=== PATIENT | male | born 1940 | race Two or more races ===

== ENCOUNTER 2019-04-14 14:57 | Inpatient (IN) | payer MEDICARE, MEDICAID ==
[~2019-04-14] VITALS: Ht 160 cm; Wt 60.6 kg
[2019-04-14 16:17] LABS: Urine WBC None Seen /hpf (0 - 3)
[2019-04-14 16:24] LABS: Urine Bacteria NONE SEEN /hpf (None Seen); Urine Blood Negative /uL (Negative); Urine Specific Gravity 1.017 (1.001-1.035)
[2019-04-14 17:14] LABS: Basophils # (auto) 0.1 uL; Eosinophils # (auto) 0 uL; Eosinophils % (auto) 0.1 % (0.0-7.0); Monocytes # (auto) 0.4 uL
[2019-04-14 17:15] LABS: Basophils % (auto) 0.9 % (0.0-2.0); Hematocrit 37.7 % (41.0-53.0); Hemoglobin 12.9 g/dL (13.5-17.5); Lymphocytes # (auto) 0.5 uL; Mean Corpuscular Hgb Conc. 34.1 g/dL (32.0-36.0); Mean Corpuscular Volume 108.7 fL (80.0-100.0); Monocytes % (auto) 3.1 % (0.0-12.0); Neutrophils # (auto) 12.8 uL; Neutrophils % (auto) 91.9 % (37.0-80.0); Platelet Count (auto) 278 10^3/uL (140-450); Red Blood Cells 3.47 10^6/uL (4.5-5.90); Red Cell Distribution Width 15.2 % (11.8-14.3); White Blood Cell 13.9 10^3/uL (4.4-10.8)
[2019-04-14 17:55] LABS: Albumin 3.9 g/dL (3.4-5.0); Anion Gap 5 (5-15); Blood Urea Nitrogen 14 mg/dL (7-18); Calcium 8.6 mg/dL (8.5-10.1); Carbon Dioxide 28 mmol/L (21-32); Chloride 101 mmol/L (98-107); Glucose 208 mg/dL (74-106); Potassium 3.9 mmol/L (3.5-5.1); Sodium 134 mmol/L (136-145)
[2019-04-14 18:00] LABS: Alanine Aminotransferase 14 U/L (16-61); Alkaline Phosphatase 52 U/L (45-117); Aspartate Aminotransferase 9 U/L (15-37); BUN/Creatinine Ratio 13.5; Bilirubin, Total 0.7 mg/dL (0.2-1.0); GFR African American 89 mL/min; GFR Non-African American 74 mL/min; Total Protein 7.2 g/dL (6.4-8.2)
[2019-04-14] MEDS ORDERED: SODIUM CHLORIDE 0.9% 1,000 ML IVB ONE (20:47)
[2019-04-14] MEDS ORDERED: ONDANSETRON HCL 4 MG/2 ML VIAL IV ONE (21:00)
[2019-04-14 21:30] LABS: Magnesium 2.3 mg/dL (1.6-2.6)
[2019-04-15] MEDS ORDERED: SODIUM CHLORIDE 0.9% 500 ML IV ONE (00:30)
[2019-04-15] MEDS ORDERED: MORPHINE SULFATE 4 MG/ML SYR/VIAL IV ONE (00:30)
[2019-04-15] MEDS ORDERED: PIPERACILLIN-TAZOB 3.375GM 100 ML IV ONE (00:30)
[2019-04-15 01:44] LABS: INR 1.05 (0.9-1.15); Partial Thromboplastin Time 27.9 sec (23.64-32.05)
[2019-04-15] MEDS ORDERED: ONDANSETRON HCL 4 MG/2 ML VIAL IV PRN (02:30)
[2019-04-15] MEDS ORDERED: DOCUSATE SOD 100 MG CAP PO PRN (02:30)
[2019-04-15] MEDS ORDERED: DEXTROSE (50%) 50ML SYRG IV PRN (02:30)
[2019-04-15] MEDS ORDERED: HYDROcodone-ACET 5/325MG TAB PO PRN (02:30)
[2019-04-15] MEDS: SODIUM CHLORIDE 0.9% 1,000 ML IV SCH ×2 (02:57→19:51)
[2019-04-15] MEDS: ACCU-CHEK COMFORT CURVE STRIP VI SCH ×6 (04:30→23:32)
[2019-04-15] MEDS: InsuLIN REG 1unit/0.01ml Soln (100units/ml) SC SCH ×6 (04:30→23:32)
--- NOTE | 2019-04-15 05:06 | NUR ---
MS admit from ER. pt arrived awake alert and oriented x4 via wheelchair. pt on room air no distress noted. pt updated on plan of care, oriented to room, call light use, remote control and bed locked, low and 2x rails up. pt encouraged to call this nurse as needed. will round q1hr and prn. pt has urinal at bedside. pt has IVF NS @60ml/hr to right upper arm 18G. call light in reach, no additional questions at this time.
[2019-04-15] MEDS ORDERED: SIMV-8 (05:13)
[2019-04-15] MEDS ORDERED: METF-372 (05:13)
[2019-04-15] MEDS ORDERED: ALEN10TA22 (05:13)
[2019-04-15] MEDS ORDERED: OXYB10TA14 ×2 (05:13)
[2019-04-15] MEDS ORDERED: TRAZ-184 (05:13)
[2019-04-15] MEDS ORDERED: TRAZ50TA2 (05:13)
[2019-04-15] MEDS ORDERED: GLIP5TAB12 (05:13)
[2019-04-15] MEDS ORDERED: CLOP75TA41 (05:13)
[2019-04-15] MEDS ORDERED: GABA800T97 (05:13)
[2019-04-15] MEDS ORDERED: FAMO-12 (05:13)
[2019-04-15] MEDS ORDERED: LISI10TA6 (05:13)
[2019-04-15] MEDS ORDERED: CARV3.1240 (05:13)
[2019-04-15] MEDS ORDERED: IBU600T (05:13)
[2019-04-15 07:25] LABS: Basophils # (auto) 0.1 uL; Hemoglobin 10.9 g/dL (13.5-17.5); Lymphocytes # (auto) 1.3 uL; Monocytes # (auto) 0.8 uL
[2019-04-15 07:27] LABS: Basophils % (auto) 0.8 % (0.0-2.0); Eosinophils # (auto) 0 uL; Eosinophils % (auto) 0.3 % (0.0-7.0); Hematocrit 31.6 % (41.0-53.0); Mean Corpuscular Hemoglobin 36.7 pg (28.0-32.0); Mean Corpuscular Hgb Conc. 34.5 g/dL (32.0-36.0); Mean Corpuscular Volume 106.3 fL (80.0-100.0); Neutrophils # (auto) 9.8 uL; Neutrophils % (auto) 80.9 % (37.0-80.0); Platelet Count (auto) 235 10^3/uL (140-450); Red Blood Cells 2.97 10^6/uL (4.5-5.90); Red Cell Distribution Width 15.3 % (11.8-14.3); White Blood Cell 12.1 10^3/uL (4.4-10.8)
--- NOTE | 2019-04-15 07:30 | NUR ---
Opening Shift Note Assumed care of patient, awake and alert. No S/S of distress/SOB or pain. Instructed on POC and to call for assist PRN, will continue to monitor for changes Q1hr and PRN.
[2019-04-15 07:45] LABS: BUN/Creatinine Ratio 13.3; Calcium 8.2 mg/dL (8.5-10.1); Potassium 3.9 mmol/L (3.5-5.1)
[2019-04-15 08:36] VITALS: BP 116/54
[2019-04-15 12:39] VITALS: BP 127/58
[2019-04-15] MEDS ORDERED: CEFTRIAXONE SODIUM 2 GM in D5W 5% 50 ML IV ONE (13:45)
[2019-04-15] MEDS ORDERED: metroNIDAZOLE 500MG/100ML 100 ML IV ONE (13:45)
--- NOTE | 2019-04-15 13:47 | NUR ---
Dr. Chan in to see patient as hospitalist. New orders received.
[2019-04-15] MEDS ORDERED: ENOXAPARIN SOD 40 MG/0.4 ML SYRINGE SC ONE (17:00)
[2019-04-15 17:08] VITALS: BP 129/64
--- NOTE | 2019-04-15 19:30 | NUR ---
Opening Shift Note Assumed care of patient, awake and alert. No S/S of distress/SOB or pain. Insructed on POC and to callfor assist PRN, will continue to monitor for changes Q1hr and PRN. Family at bedside. Fall and safety precautions in place. Call light within reach.
[2019-04-15] MEDS: MORPHINE SULFATE 4 MG/ML SYR/VIAL IV PRN (21:18)
[2019-04-15] MEDS: metroNIDAZOLE 500MG/100ML 100 ML IV SCH (21:18)
[2019-04-15 22:00] VITALS: BP 152/65
[2019-04-15] MEDS: ACETAMINOPHEN 325 MG TAB PO PRN (22:30)
--- NOTE | 2019-04-15 22:30 | NUR ---
TEMP Patient's temp 99.8F oral. Patient medicated with PRN medication (see emar) and cooling measures applied. Will continue to monitor
--- NOTE | 2019-04-15 23:30 | NUR ---
TEMP Patient's oral temp 99.5F. Cooling measures continued
[2019-04-16] MEDS: InsuLIN REG 1unit/0.01ml Soln (100units/ml) SC SCH ×5 (03:35→23:21)
[2019-04-16] MEDS: ACCU-CHEK COMFORT CURVE STRIP VI SCH ×5 (03:35→23:09)
[2019-04-16 05:00] VITALS: BP 144/68
[2019-04-16 05:49] LABS: Basophils # (auto) 0.1 uL; Basophils % (auto) 0.7 % (0.0-2.0); Eosinophils # (auto) 0.1 uL; Eosinophils % (auto) 0.5 % (0.0-7.0); Lymphocytes # (auto) 0.8 uL; Monocytes # (auto) 0.8 uL
[2019-04-16] MEDS: metroNIDAZOLE 500MG/100ML 100 ML IV SCH ×3 (05:50→21:54)
[2019-04-16] MEDS: MORPHINE SULFATE 4 MG/ML SYR/VIAL IV PRN (05:50)
[2019-04-16 05:54] LABS: Hematocrit 31.6 % (41.0-53.0); Lymphocytes % (auto) 6.7 % (10.0-50.0); Mean Corpuscular Hgb Conc. 34.9 g/dL (32.0-36.0); Monocytes % (auto) 6.6 % (0.0-12.0); Neutrophils # (auto) 10.5 uL; Neutrophils % (auto) 85.5 % (37.0-80.0); Platelet Count (auto) 225 10^3/uL (140-450); Red Blood Cells 2.98 10^6/uL (4.5-5.90); Red Cell Distribution Width 15.6 % (11.8-14.3); White Blood Cell 12.2 10^3/uL (4.4-10.8)
[2019-04-16 06:09] LABS: Potassium 3.8 mmol/L (3.5-5.1)
[2019-04-16 06:31] LABS: BUN/Creatinine Ratio 16.1; Bilirubin, Total 0.8 mg/dL (0.2-1.0); Calcium 7.9 mg/dL (8.5-10.1); Magnesium 2.1 mg/dL (1.6-2.6); Phosphorus 2.3 mg/dL (2.5-4.90); Total Protein 5.8 g/dL (6.4-8.2)
--- NOTE | 2019-04-16 07:47 | NUR ---
OPENING SHIFT NOTE: PATIENT ASLEEP AWOKEN TO NAME A/OX4, RESPIRATIONS EVEN AND UNLABORED. PATIENT VERBALIZED UNDERSTANDING OF NPO STATUS. FALL PRECAUTIONS IN PLACE. CALL LIGHT WITHIN REACH, UPDATED ON PLAN OF CARE WILL CONTINUE TO MONITOR.
--- NOTE | 2019-04-16 08:31 | NUR ---
PATIENT BLOOD SUGAR 133, PER SLIDING SCALE REQUIRES 2 UNITS REGULAR. PATIENT REFUSED, AND IS NPO. INSULIN HELD AT THIS TIME.
[2019-04-16 09:26] VITALS: BP 107/61
[2019-04-16] MEDS: cefTRIAXone 1GM/50ML D5W 50 ML IV SCH (09:51)
[2019-04-16] MEDS: ENOXAPARIN SOD 40 MG/0.4 ML SYRINGE SC SCH (10:42)
--- NOTE | 2019-04-16 10:45 | NUR ---
PATIENT RESTING IN BED, FAMILY AT BEDSIDE. UPDATED ON PLAN OF CARE.
[2019-04-16] MEDS: SODIUM CHLORIDE 0.9% 1,000 ML IV SCH (11:50)
--- NOTE | 2019-04-16 12:12 | NUR ---
SPOKE WITH [employer] EMPLOYEE RELATIONS ADVISOR, PATIENT IS ON THE LIST FOR APPENDECTOMY, BUT UNABLE TO TELL THIS RN WHO THE SURGEON IS, TONIA OR GLORIA. FAMILY ASKING THIS RN WHEN THE SURGEON IS GOING TO COME SEE THE PATIENT. NO ORDERS PLACED IN THE CHART. PATIENT NPO SINCE Tuesday-. THIS RN UNABLE TO PERFORM CONSENTS OR COMPLETE CHECKLIST WITHOUT VERIFICATION OF SURGERY OR SURGEON AT THIS TIME.
[2019-04-16 13:00] VITALS: BP 120/63
[2019-04-16] MEDS ORDERED: DEXTROSE (50%) 50ML SYRG IV PRN (13:30)
--- NOTE | 2019-04-16 14:33 | NUR ---
CALL FROM MD RANDALL, ECHO ORDERED FOR CARDIAC CLEARANCE PRIOR TO SURGERY. CONSENTS FOR PROCEDURE COMPLETED AND PLACED IN THE HARD CHART. PATIENT VERBALIZED UNDERSTANDING NPO STATUS.
--- NOTE | 2019-04-16 15:30 | NUR ---
PATIENT TAKEN DOWN TO OR.
[2019-04-16] MEDS ORDERED: ROCURONIUM 10MG/ML 10ML VIAL IV ONE (16:01)
[2019-04-16] MEDS ORDERED: fentaNYL CITRATE 100 MCG/2 ML VL ONE ×2 (16:01→17:15)
[2019-04-16] MEDS ORDERED: PROPOFOL 10 MG/ML 20 ML IV ONE (16:02)
--- NOTE | 2019-04-16 16:10 | NUR ---
PRE-OP STAFF MADE AWARE OF FAMILY IN LOBBY WAITING ROOM AREA.
[2019-04-16] MEDS ORDERED: ePHEDrine SULFATE 50 MG/ML AMP IV PRN (17:30)
[2019-04-16] MEDS ORDERED: hydrALAZINE HCL 20 MG/ML VL IV PRN (17:30)
[2019-04-16] MEDS ORDERED: ONDANSETRON HCL 4 MG/2 ML VIAL IV PRN (17:30)
[2019-04-16] MEDS ORDERED: MORPHINE SULF INJ 2 MG/ML SYRINGE 1ML IV PRN (17:30)
--- NOTE | 2019-04-16 18:05 | NUR ---
CALL FROM TIMBER GRADER PATIENT TO BE UPGRADED TO TELE.
--- NOTE | 2019-04-16 18:42 | NUR ---
PATIENT BACK IN ROOM FROM RECOVERY. MIDLINE INCISIONS CDI. ED DRAIN NOTED WITH 75CC LIGHT RED [place] FLUID. VS OBTAINED. 99.6 TEMP, BP 153/87 98% ON 2L NC, HR 75 RR 20. PATIENT DRY HEAVING MILDLY. NO EMESIS. ABLE TO SWISH AND SPIT WATER OUT. ABDOMINAL BINDER IN PLACE. CLEAR LIQUID AT BEDSIDE, ASPIRATION PRECAUTIONS IN PLACE. SCDS IN PLACE. I.S. AT BEDSIDE. WILL ENDORSE CARE TO NOC RN
--- NOTE | 2019-04-16 19:22 | NUR ---
CARE ENDORSED TO JUN AHUJA.
[2019-04-16] MEDS: ACETAMINOPHEN 325 MG TAB PO PRN (19:48)
--- NOTE | 2019-04-16 20:00 | NUR ---
EXPLAINED INCENTIVE SPIROMETER TO PATIENT AND FAMILY. PATIENT ATTEMPTED BUT WAS UNABLE DUE TO PAIN. WILL ATTEMPT AT A LATER TIME AFTER PAIN MEDICINE ADMINISTERED. WILL CONTINUE TO MONITOR.
[2019-04-16] MEDS: MORPHINE SULF INJ 2 MG/ML SYRINGE 1ML IV PRN (21:54)
[2019-04-16 22:30] VITALS: BP 148/70
[2019-04-17 05:09] VITALS: BP 141/65
[2019-04-17] MEDS: InsuLIN REG 1unit/0.01ml Soln (100units/ml) SC SCH ×4 (05:24→23:37)
[2019-04-17] MEDS: ACCU-CHEK COMFORT CURVE STRIP VI SCH ×4 (05:24→23:37)
[2019-04-17] MEDS: metroNIDAZOLE 500MG/100ML 100 ML IV SCH ×3 (05:24→21:12)
[2019-04-17] MEDS: SODIUM CHLORIDE 0.9% 1,000 ML IV SCH (05:25)
--- NOTE | 2019-04-17 06:10 | NUR ---
ED DRAIN EMPTIED APPROXIMATELY 120 CC OF SANGUINEOUS FLUID EMPTIED OVER ENTIRE SHIFT. PATIENT DENIES ANY PAIN AT THIS TIME. VITALS STABLE. WILL CONTINUE TO MONITOR.
--- NOTE | 2019-04-17 07:20 | NUR ---
PATIENT RECEIVED FROM INJECTION MOLDING SUPERVISOR RN. AWAKE, ALERT AND ORIENTED X4. REPORTS 6/10 PAIN ON INCISION SITE AND REQUESTING TYLENOL, DENIES SOB. FALL AND SAFETY PRECAUTION IN PLACE. CALL LIGHT WITHIN REACH AND PATIENT ABLE TO USE. PT INSTRUCTED ON PLAN OF CARE AND TO CALL FOR ASSISTANCE, PRN. WILL CONTINUE TO MONITOR FOR CHANGES Q1HR AND PRN.
[2019-04-17] MEDS: ACETAMINOPHEN 325 MG TAB PO PRN (08:50)
[2019-04-17] MEDS: cefTRIAXone 1GM/50ML D5W 50 ML IV SCH (08:51)
[2019-04-17 09:00] VITALS: BP 143/63
[2019-04-17] MEDS: ENOXAPARIN SOD 40 MG/0.4 ML SYRINGE SC SCH (09:21)
[2019-04-17] MEDS: MORPHINE SULF INJ 2 MG/ML SYRINGE 1ML IV PRN ×3 (12:45→21:02)
[2019-04-17 13:00] VITALS: BP 173/75
[2019-04-17 17:00] VITALS: BP 159/62
--- NOTE | 2019-04-17 19:55 | NUR ---
PATIENT ED EMPTIED ED EMPTIED APPROXIMATELY 60 CC OF SANGUINEOUS FLUID. PATIENT HAS BEEN UP AMBULATING AND FLATUS HAS BEEN PASSED. PATIENT STATES PAIN BUT STATES IT IS TOLERABLE FOR NOW. WILL MEDICATE FOR PAIN PER PAIN PROTOCOL WHEN AVAILABLE.
--- NOTE | 2019-04-17 20:00 | NUR ---
Opening Shift Note Assumed care of patient, awake and alert. No S/S of distress/SOB or pain. Dressing inspected and clean dry and intact. Instructed on POC and to call for assist PRN, will continue to monitor for changes Q1hr and PRN.
[2019-04-17 20:18] LABS: Basophils # (auto) 0.1 uL; Eosinophils # (auto) 0 uL; Neutrophils # (auto) 7.5 uL
[2019-04-17 20:20] LABS: Basophils % (auto) 0.7 % (0.0-2.0); Eosinophils % (auto) 0.3 % (0.0-7.0); Hematocrit 34.3 % (41.0-53.0); Hemoglobin 11.8 g/dL (13.5-17.5); Lymphocytes % (auto) 10.6 % (10.0-50.0); Mean Corpuscular Hemoglobin 36.4 pg (28.0-32.0); Mean Corpuscular Hgb Conc. 34.5 g/dL (32.0-36.0); Mean Corpuscular Volume 105.5 fL (80.0-100.0); Monocytes # (auto) 0.7 uL; Monocytes % (auto) 7.9 % (0.0-12.0); Neutrophils % (auto) 80.5 % (37.0-80.0); Platelet Count (auto) 241 10^3/uL (140-450); Red Blood Cells 3.25 10^6/uL (4.5-5.90); Red Cell Distribution Width 15.2 % (11.8-14.3); White Blood Cell 9.3 10^3/uL (4.4-10.8)
[2019-04-17] MEDS: CARVEDILOL 3.125 MG TAB PO SCH (21:12)
[2019-04-17 22:00] VITALS: BP 169/76
[2019-04-17 23:37] VITALS: BP 157/68
--- NOTE | 2019-04-18 02:04 | NUR ---
REPORT GIVEN TO ROBERT AHUJA.
--- NOTE | 2019-04-18 02:10 | NUR ---
[place] of Care Assumed care of patient. Patient sleeping and resting comfortably. No signs of distress/SOB or pain. Will monitor for changes Q1hr and PRN. Bed locked in lowest position and bed rails up x2. Call light within reach.
[2019-04-18 04:42] VITALS: BP 142/93
[2019-04-18] MEDS: InsuLIN REG 1unit/0.01ml Soln (100units/ml) SC SCH ×2 (06:00→12:00)
[2019-04-18] MEDS: ACCU-CHEK COMFORT CURVE STRIP VI SCH ×2 (06:46→12:13)
[2019-04-18] MEDS: metroNIDAZOLE 500MG/100ML 100 ML IV SCH (06:46)
--- NOTE | 2019-04-18 06:50 | NUR ---
100ml of sanguinous drainage from suction bulb emptied.
[2019-04-18 08:40] VITALS: BP 154/81
[2019-04-18] MEDS: ENOXAPARIN SOD 40 MG/0.4 ML SYRINGE SC SCH (09:29)
[2019-04-18] MEDS: cefTRIAXone 1GM/50ML D5W 50 ML IV SCH (09:29)
[2019-04-18] MEDS: CARVEDILOL 3.125 MG TAB PO SCH (09:31)
[2019-04-18] MEDS: MORPHINE SULF INJ 2 MG/ML SYRINGE 1ML IV PRN (09:35)
[2019-04-18] MEDS ORDERED: LISINOPRIL 10 MG TAB PO SCH (10:00)
--- NOTE | 2019-04-18 10:14 | NUR ---
Opening Shift Note Assumed care of patient, awake and alert. No S/S of distress/SOB or pain. Instructed on POC and to call for assist PRN, will continue to monitor for changes Q1hr and PRN. Addendum: 04/18/19 at 1232 by Karla Chavez RN NOTES FOR [id number]
[2019-04-18] MEDS ORDERED: METR500T PO (11:36)
[2019-04-18] MEDS ORDERED: LEVO-28 PO (11:36)
[2019-04-18 13:15] VITALS: BP 153/64
--- NOTE | 2019-04-18 14:41 | NUR ---
Nutrition Assessment Notes Please refer to link for full assessment notes Est energy needs: 1515-1802m kcals (25-30 kcals/kgBW) Est protein needs: 48-61 gms/day (0.8-1.0 gm/kgBW) Will continue to monitor and reassess prn Addendum: 04/18/19 at [address] Amended: Links added.
== END 2019-04-18 14:20 | disposition home or self-care (01) | DRG 342 ==
LOC: ER 15:24 → EDSEX 15:24 → OVERFLOW 15:25 → WEST WING 04-15 04:02 → TELE-WESTW 04-17 06:46
PROVIDERS: ADMIT Hospitalist; ATTEND Internal Medicine
PROC: 0DTJ4ZZ Resection of Appendix, Percutaneous Endoscopic Approach (ICD-10-PCS; principal; 2019-04-16 15:55)
DX: K35.80 Unspecified acute appendicitis (principal); R65.10 Systemic inflammatory response syndrome (SIRS) of non-infectious origin without acute organ dysfunction; I10 Essential (primary) hypertension; E11.9 Type 2 diabetes mellitus without complications; I25.5 Ischemic cardiomyopathy; I25.10 Atherosclerotic heart disease of native coronary artery without angina pectoris; F12.90 Cannabis use, unspecified, uncomplicated; E78.5 Hyperlipidemia, unspecified; N40.0 Benign prostatic hyperplasia without lower urinary tract symptoms; Z95.1 Presence of aortocoronary bypass graft; Z82.49 Family history of ischemic heart disease and other diseases of the circulatory system
CPT/HCPCS: 36415; 71045; 74176; 80048; 80053; 81001; 82150; 82962; 83036; 83690; 83735; 83880; 84100; 84484; 85025; 85610; 85730; 86850; 86900; 86901; 87040; 93306; 96361; 96365; 96366; 96375; G0378; J0696; J1815; J2405; J2543; J2704; J3490; J7060

== ENCOUNTER 2021-07-09 17:40 | Inpatient (IN) | payer MEDICARE, MEDICAID ==
[~2021-07-09] VITALS: Ht 160 cm; Wt 59.0 kg
[~2021-07-09 17:40] MED LIST: ALEN10TA22; CARV3.1240; CLOP75TA70; FAMO-12; GABA800T97; GLIP5TAB12; IBUP600T28; LEVO-28 PO; LISI-716; METF-372; METR500T PO; OXYB10TA14; SIMV-8; TRAZ-184; TRAZ50TA2
[2021-07-09 19:21] LABS: Lymphocytes # (auto) 1.8 10 ^3/uL (0.4-5.4); Monocytes # (auto) 0.5 10 ^3/uL (0-1.3); Red Blood Cells 2.46 10^6/uL (4.5-5.90)
[2021-07-09 19:22] LABS: Basophils # (auto) 0.2 10 ^3/uL (0-0.2); Basophils % (auto) 1.8 % (0.0-2.0); Eosinophils # (auto) 0.2 10 ^3/uL (0-0.8); Eosinophils % (auto) 2.9 % (0.0-7.0); Hemoglobin 9.2 g/dL (13.5-17.5); Lymphocytes % (auto) 21.4 % (10.0-50.0); Mean Corpuscular Hemoglobin 37.4 pg (28.0-32.0); Mean Corpuscular Hgb Conc. 35.3 g/dL (32.0-36.0); Mean Corpuscular Volume 105.9 fL (80.0-100.0); Monocytes % (auto) 5.4 % (0.0-12.0); Neutrophils # (auto) 5.8 10 ^3/uL (1.6-8.6); Neutrophils % (auto) 68.5 % (37.0-80.0); Red Cell Distribution Width 16.2 % (11.8-14.3); White Blood Cell 8.5 10^3/uL (4.4-10.8)
[2021-07-09 19:34] LABS: Albumin 3.7 g/dL (3.4-5.0); Potassium 4.7 mmol/L (3.5-5.1)
[2021-07-09 19:36] LABS: BUN/Creatinine Ratio 22.5
[2021-07-09 19:38] LABS: Bilirubin, Total 0.7 mg/dL (0.2-1.0); Total Protein 6.7 g/dL (6.4-8.2)
[2021-07-09 19:44] LABS: INR 1.04 (0.9-1.15); Partial Thromboplastin Time 25.8 sec (23.6-33.0)
[2021-07-09] MEDS ORDERED: DOCUSATE SOD 100 MG CAP PO PRN (20:15)
[2021-07-09] MEDS ORDERED: NITROGLYCERIN 0.4 MG SL TAB SL PRN (20:15)
[2021-07-09] MEDS ORDERED: DEXTROSE (50%) 50ML SYRG IV PRN (20:15)
[2021-07-09] MEDS ORDERED: HYDROcodone-ACET 5/325MG TAB PO PRN ×2 (20:15→21:45)
[2021-07-09] MEDS ORDERED: MORPHINE SULFATE INJECTION 2 MG/ML SYRG IV PRN ×2 (20:15→21:45)
[2021-07-09] MEDS ORDERED: ONDANSETRON HCL 4 MG/2 ML VIAL IV PRN (20:15)
[2021-07-09] MEDS ORDERED: MORPHINE SULFATE 4 MG/ML SYR/VIAL IV PRN (20:15)
[2021-07-09] MEDS ORDERED: ACETAMINOPHEN 325 MG TAB PO PRN ×2 (20:15→21:45)
[2021-07-09] MEDS: SODIUM CHLORIDE 0.9% 1,000 ML IV SCH (21:27)
[2021-07-09] MEDS ORDERED: VANCOMYCIN PER PHARMACY 0 MG IV SCH (21:45)
[2021-07-09] MEDS: InsuLIN REG 1unit/0.01ml Soln (100units/ml) SC SCH (22:00)
[2021-07-09] MEDS: CARVEDILOL 3.125 MG TAB PO SCH (22:00)
[2021-07-09] MEDS: HEPARIN SODIUM (PORCINE) 5000 UNITS/ML 1ML VIAL SC SCH (22:00)
[2021-07-09] MEDS ORDERED: VANCOMYCIN 1GM/250ML 250 ML IV ONE (22:15)
[2021-07-09] MEDS: ACCU-CHEK COMFORT CURVE STRIP VI SCH (22:46)
[2021-07-09 22:58] VITALS: BP 140/58
[2021-07-10] MEDS ORDERED: PIPERACILLIN-TAZOB 3.375GM 100 ML IV SCH
[2021-07-10] MEDS: PIPERACILLIN-TAZOB 2.25GM 50 ML IV SCH ×3 (00:07→12:00)
[2021-07-10 01:59] LABS: Protein, Urine < 5.0 mg/dL (0.0-11.9)
[2021-07-10 02:00] LABS: Creatinine, Urine 6.17 mg/dL (30.0-125.0)
[2021-07-10 05:00] VITALS: BP 127/54
[2021-07-10] MEDS: HEPARIN SODIUM (PORCINE) 5000 UNITS/ML 1ML VIAL SC SCH ×2 (05:31→14:00)
[2021-07-10] MEDS: InsuLIN REG 1unit/0.01ml Soln (100units/ml) SC SCH ×2 (06:22→11:26)
[2021-07-10] MEDS: ACCU-CHEK COMFORT CURVE STRIP VI SCH ×2 (06:22→11:25)
[2021-07-10 06:53] LABS: Basophils # (auto) 0.1 10 ^3/uL (0-0.2); Eosinophils # (auto) 0.2 10 ^3/uL (0-0.8); Monocytes # (auto) 0.4 10 ^3/uL (0-1.3); Neutrophils # (auto) 3.3 10 ^3/uL (1.6-8.6); White Blood Cell 5.4 10^3/uL (4.4-10.8)
[2021-07-10 06:56] LABS: Basophils % (auto) 2.1 % (0.0-2.0); Eosinophils % (auto) 4.4 % (0.0-7.0); Hematocrit 22.5 % (41.0-53.0); Lymphocytes # (auto) 1.3 10 ^3/uL (0.4-5.4); Lymphocytes % (auto) 24.8 % (10.0-50.0); Mean Corpuscular Hemoglobin 37.6 pg (28.0-32.0); Mean Corpuscular Hgb Conc. 35.6 g/dL (32.0-36.0); Mean Corpuscular Volume 105.4 fL (80.0-100.0); Monocytes % (auto) 6.9 % (0.0-12.0); Neutrophils % (auto) 61.8 % (37.0-80.0); Red Blood Cells 2.14 10^6/uL (4.5-5.90); Red Cell Distribution Width 15.7 % (11.8-14.3)
[2021-07-10 07:09] LABS: Potassium 4.3 mmol/L (3.5-5.1)
[2021-07-10 07:19] LABS: Albumin 2.9 g/dL (3.4-5.0); BUN/Creatinine Ratio 22.2; Calcium 8.4 mg/dL (8.5-10.1)
[2021-07-10 07:21] LABS: Bilirubin, Total 0.7 mg/dL (0.2-1.0); Total Protein 5.4 g/dL (6.4-8.2)
[2021-07-10 08:00] VITALS: BP 139/54
[2021-07-10] MEDS ORDERED: PANTOPRAZOLE 40 MG/10 ML VIAL INJ IV SCH (10:00)
[2021-07-10] MEDS ORDERED: LISINOPRIL 10 MG TAB PO SCH (10:00)
[2021-07-10] MEDS: CARVEDILOL 3.125 MG TAB PO SCH (10:11)
[2021-07-10] MEDS ORDERED: fentaNYL CITRATE 100 MCG/2 ML VL ONE (12:32)
[2021-07-10] MEDS ORDERED: MIDAZOLAM HCL 2MG/2ML 2ml VIAL (1mg/ml) ONE (12:33)
[2021-07-10] MEDS ORDERED: VANCOMYCIN 1GM/250ML 250 ML IV ONE (12:38)
[2021-07-10] MEDS ORDERED: ceFAZolin 1GM VL ONE ×3 (12:38→13:07)
[2021-07-10] MEDS ORDERED: VANCOMYCIN HCL 1000 MG VL ONE ×2 (12:38→12:51)
[2021-07-10] MEDS ORDERED: LIDOCAINE 2%HCL (LOCAL ANESTH.) INJ 10ml MDV ONE (12:42)
[2021-07-10] MEDS: SODIUM CHLORIDE 0.9% 1,000 ML IV SCH (12:55)
[2021-07-10] MEDS ORDERED: GELATIN 1 SPONGE SIZE 50 TOP ONE (13:00)
[2021-07-10] MEDS ORDERED: DOXYCYCLINE 100 MG TAB/CAP PO ONE (14:00)
[2021-07-10 15:20] VITALS: BP 104/62
[2021-07-10] MEDS ORDERED: DOXY-286 PO (15:57)
[2021-07-10] MEDS ORDERED: ACE3T PO (15:57)
[2021-07-10 17:12] VITALS: BP 104/62
[2021-07-10 17:25] VITALS: BP 104/62
[2021-07-10] MEDS ORDERED: VANCOMYCIN 1GM/250ML 250 ML IV SCH (23:00)
== END 2021-07-10 18:10 | disposition home or self-care (01) | DRG 580 ==
LOC: ER 17:40 → TELE 20:15 → TELE-EAST 22:14
PROVIDERS: ADMIT Nurse Practitioner; ATTEND Nurse Practitioner
PROC: 0JWT3PZ Revision of Cardiac Rhythm Related Device in Trunk Subcutaneous Tissue and Fascia, Percutaneous Approach (ICD-10-PCS; principal; 2021-07-10)
PROC: 4B02XTZ Measurement of Cardiac Defibrillator, External Approach (ICD-10-PCS; 2021-07-10)
PROC: 0KBJ0ZZ Excision of Left Thorax Muscle, Open Approach (ICD-10-PCS; 2021-07-10)
DX: L02.213 Cutaneous abscess of chest wall (principal); I13.0 Hypertensive heart and chronic kidney disease with heart failure and stage 1 through stage 4 chronic kidney disease, or unspecified chronic kidney disease; N17.9 Acute kidney failure, unspecified; I50.22 Chronic systolic (congestive) heart failure; I25.5 Ischemic cardiomyopathy; N18.9 Chronic kidney disease, unspecified; I25.10 Atherosclerotic heart disease of native coronary artery without angina pectoris; E11.22 Type 2 diabetes mellitus with diabetic chronic kidney disease; E78.5 Hyperlipidemia, unspecified; R00.1 Bradycardia, unspecified; D53.9 Nutritional anemia, unspecified; Z20.822 Contact with and (suspected) exposure to COVID-19; I45.10 Unspecified right bundle-branch block; Z95.1 Presence of aortocoronary bypass graft; Z82.49 Family history of ischemic heart disease and other diseases of the circulatory system; Z95.810 Presence of automatic (implantable) cardiac defibrillator; Z79.84 Long term (current) use of oral hypoglycemic drugs
CPT/HCPCS: 33223; 36415; 71046; 76775; 80053; 82570; 82962; 83605; 84156; 84300; 85025; 85610; 85730; 86850; 86900; 86901; 87040; 87081; 96365; 99152; 99153; C9113; G0378; J0690; J2001; J2250; J2543

== ENCOUNTER 2023-12-08 02:47 | Inpatient (IN) | payer MEDICARE, MEDICAID ==
[2023-12-08] VITALS (8 sets, daily range): BP systolic 113–140; BP diastolic 60–65; PULSE 70–71; RESP 16–18; TEMP 97.8–98.5; O2SAT 95–98
[~2023-12-08] VITALS: Ht 162.6 cm; Wt 55.2 kg
[~2023-12-08 02:47] MED LIST changes: -ALEN10TA22; +ALEN10TA22 PO; -CARV3.1240; +CARV3.1240 PO; -CLOP75TA70; +DOXY-286 PO; -GLIP5TAB12; +GLIP5TAB21; -IBUP600T28; -LEVO-28 PO; -LISI-716; +LISI10TA34 PO; -METF-372; +METF-372 PO; -METR500T PO; -SIMV-8; +SIMV20TA20; -TRAZ-184; -TRAZ50TA2
[2023-12-08 04:05] LABS: Basophils # (auto) 0.1 10 ^3/uL (0-0.2); Eosinophils # (auto) 0 10 ^3/uL (0-0.8); Eosinophils % (auto) 0.1 % (0.0-7.0); Hemoglobin 12.6 g/dL (13.5-17.5); Mean Corpuscular Hemoglobin 37.6 pg (28.0-32.0); Monocytes # (auto) 0.4 10 ^3/uL (0-1.3); Monocytes % (auto) 4.9 % (0.0-12.0); Nucleated Red Blood Cells % 0.1 %
[2023-12-08 04:07] LABS: Basophils % (auto) 0.9 % (0.0-2.0); Hematocrit 35.7 % (41.0-53.0); Lymphocytes # (auto) 0.6 10 ^3/uL (0.4-5.4); Lymphocytes % (auto) 8.3 % (10.0-50.0); Mean Corpuscular Hgb Conc. 35.3 g/dL (32.0-36.0); Mean Corpuscular Volume 106.6 fL (80.0-100.0); Neutrophils # (auto) 6.3 10 ^3/uL (1.6-8.6); Neutrophils % (auto) 85.8 % (37.0-80.0); Platelet Count (auto) 221 10^3/uL (140-450); Red Blood Cells 3.35 10^6/uL (4.5-5.90); Red Cell Distribution Width 17.1 % (11.8-14.3); White Blood Cell 7.4 10^3/uL (4.4-10.8)
[2023-12-08 04:11] LABS: Chloride 101 mmol/L (98-107); Potassium 4.6 mmol/L (3.5-5.1); Sodium 136 mmol/L (136-145)
[2023-12-08 04:12] LABS: Anion Gap 10 (5-15); Carbon Dioxide 25 mmol/L (20-30)
[2023-12-08 04:13] LABS: Calcium 9.8 mg/dL (8.7-10.4)
[2023-12-08 04:17] LABS: BUN/Creatinine Ratio 12.3 (10.0-20.0); Blood Urea Nitrogen 21 mg/dL (9-23); Glucose 250 mg/dL (74-106)
[2023-12-08] MEDS: ALBUTEROL SULF 2.5 MG/0.5ML(0.5%) NEB SOLN NEB ONE (05:09)
[2023-12-08] MEDS: FAMOTIDINE (10MG/ML) 2ML VL IV ONE (05:28)
[2023-12-08] MEDS: ONDANSETRON HCL 4 MG/2 ML VIAL IV ONE (05:28)
[2023-12-08] MEDS ORDERED: HYDROcodone-ACET 5/325MG TAB PO PRN (06:30)
[2023-12-08] MEDS ORDERED: DEXTROSE (50%) 50ML SYRG IV PRN (06:30)
[2023-12-08] MEDS ORDERED: MORPHINE SULFATE INJ 2 MG/ml SYRG IV PRN (06:30)
[2023-12-08] MEDS ORDERED: DOCUSATE SOD 100 MG CAP PO PRN (06:30)
[2023-12-08] MEDS: SODIUM CHLORIDE 0.9% 1,000 ML IV ONE (06:30)
[2023-12-08] MEDS ORDERED: ONDANSETRON HCL 4 MG/2 ML VIAL IV PRN (06:30)
[2023-12-08] MEDS ORDERED: NITROGLYCERIN 0.4 MG SL TAB SL PRN (06:45)
[2023-12-08] MEDS: ACCU-CHEK COMFORT CURVE STRIP VI SCH (06:48)
[2023-12-08] MEDS ORDERED: NITROGLYCERIN 0.4 MG SL TAB SL ONE (06:49)
[2023-12-08] MEDS: InsuLIN REG 1unit/0.01ml Soln (100units/ml) SC SCH ×2 (06:50→22:00)
[2023-12-08] MEDS: NITROGLYCERIN 0.4 MG SL TAB SL PRN (06:55)
[2023-12-08 07:04] LABS: Triglycerides 124 mg/dL (< 150)
[2023-12-08 07:05] LABS: LDL Cholesterol 104 mg/dL (< 100)
[2023-12-08 07:06] LABS: Cholesterol 174 mg/dL (< 200); HDL Cholesterol 42 mg/dL (40-59)
[2023-12-08] MEDS: MORPHINE SULFATE INJ 2 MG/ml SYRG IV PRN (08:28)
[2023-12-08] MEDS ORDERED: ENOXAPARIN SOD 40 MG/0.4 ML SYRINGE SC SCH (10:00)
[2023-12-08] MEDS: ATORVASTATIN 20 MG TAB PO SCH (10:34)
[2023-12-08] MEDS: DOXYCYCLINE 100 MG TAB/CAP PO SCH (10:35)
[2023-12-08] MEDS: FAMOTIDINE 20 MG TAB PO SCH (10:35)
[2023-12-08] MEDS: LISINOPRIL 5 MG TAB PO SCH (10:35)
[2023-12-08] MEDS: ASPirin 325 MG TAB PO ONE (10:36)
[2023-12-08] MEDS: glipiZIDE 5 MG TAB PO SCH (10:39)
[2023-12-08] MEDS: CARVEDILOL 3.125 MG TAB PO SCH (10:39)
[2023-12-08] MEDS: ENOXAPARIN SOD 30 MG/0.3 ML SYRINGE SC SCH (10:40)
[2023-12-08] MEDS ORDERED: hydrALAZINE HCL 20 MG/ML VL IV PRN (14:15)
[2023-12-08 14:27] LABS: Urine Bacteria None Seen /hpf (None Seen)
[2023-12-08 14:42] LABS: Urine Blood Negative /uL (Negative); Urine Clarity Clear (Clear); Urine Color Light-Yellow (Yellow); Urine Protein, UAD 1+ (Negative); Urine Specific Gravity 1.027 (1.001-1.035); Urine Urobilinogen Normal (Negative); Urine WBC <1 /hpf (0 - 3); Urine pH 5.5 (5.0-9.0)
[2023-12-08] MEDS ORDERED: PANT1INJ3 PO (16:52)
[2023-12-08] MEDS ORDERED: APIX2.5T PO (16:52)
[2023-12-08] MEDS ORDERED: EMPA1TAB PO (16:52)
[2023-12-08] MEDS ORDERED: TRAZ1TAB12 PO (16:52)
[2023-12-09] VITALS (8 sets, daily range): BP systolic 112–137; BP diastolic 57–73; PULSE 64–70; RESP 14–19; TEMP 98–98.9; O2SAT 97–98
[2023-12-09 06:43] LABS: Basophils # (auto) 0.1 10 ^3/uL (0-0.2); Basophils % (auto) 1.1 % (0.0-2.0); Eosinophils # (auto) 0.1 10 ^3/uL (0-0.8); Lymphocytes # (auto) 1.6 10 ^3/uL (0.4-5.4); Mean Corpuscular Hemoglobin 37.2 pg (28.0-32.0); Monocytes # (auto) 0.7 10 ^3/uL (0-1.3); Monocytes % (auto) 8.6 % (0.0-12.0)
[2023-12-09 06:45] LABS: Eosinophils % (auto) 0.9 % (0.0-7.0); Hematocrit 34.3 % (41.0-53.0); Hemoglobin 12.1 g/dL (13.5-17.5); Lymphocytes % (auto) 20.1 % (10.0-50.0); Mean Corpuscular Hgb Conc. 35.4 g/dL (32.0-36.0); Neutrophils # (auto) 5.6 10 ^3/uL (1.6-8.6); Neutrophils % (auto) 69.3 % (37.0-80.0); Platelet Count (auto) 208 10^3/uL (140-450); Red Blood Cells 3.27 10^6/uL (4.5-5.90); Red Cell Distribution Width 16.9 % (11.8-14.3); White Blood Cell 8.1 10^3/uL (4.4-10.8)
[2023-12-09 07:08] LABS: Albumin 3.8 g/dL (3.2-4.8); Alkaline Phosphatase 41 U/L (46-116); Anion Gap 6 (5-15); Aspartate Aminotransferase 9 U/L (13-40); Blood Urea Nitrogen 24 mg/dL (9-23); Calcium 9.1 mg/dL (8.7-10.4); Carbon Dioxide 27 mmol/L (20-30); Chloride 103 mmol/L (98-107); Potassium 4.1 mmol/L (3.5-5.1); Sodium 136 mmol/L (136-145); Total Protein 5.9 g/dL (5.7-8.2)
[2023-12-09 07:38] LABS: Alanine Aminotransferase < 9 U/L (7-40); Glucose 135 mg/dL (74-106)
[2023-12-09 07:39] LABS: BUN/Creatinine Ratio 13.8 (10.0-20.0)
[2023-12-09] MEDS: ENOXAPARIN SOD 60 MG/0.6 ML SYRINGE SC SCH (09:20)
[2023-12-09] MEDS: ASPirin 81 mg TAB PO SCH (09:24)
[2023-12-09] MEDS ORDERED: SIMV40TA18 PO (10:41)
[2023-12-09] MEDS ORDERED: LINA5TAB PO (10:42)
[2023-12-09] MEDS ORDERED: ALBUTEROL SULF 2.5 MG/0.5ML(0.5%) NEB SOLN NEB PRN (14:30)
[2023-12-10] VITALS (12 sets, daily range): BP systolic 124–137; BP diastolic 63–75; PULSE 69–80; RESP 14–18; TEMP 97.9–99; O2SAT 97–99
[2023-12-10 06:30] LABS: Eosinophils # (auto) 0.1 10 ^3/uL (0-0.8); Hemoglobin 12.6 g/dL (13.5-17.5); Lymphocytes # (auto) 1.9 10 ^3/uL (0.4-5.4); Lymphocytes % (auto) 27.7 % (10.0-50.0); Monocytes # (auto) 0.6 10 ^3/uL (0-1.3); Neutrophils % (auto) 59.6 % (37.0-80.0); Nucleated Red Blood Cells % 0.1 %
[2023-12-10 06:32] LABS: Basophils # (auto) 0.2 10 ^3/uL (0-0.2); Basophils % (auto) 2.3 % (0.0-2.0); Eosinophils % (auto) 1.3 % (0.0-7.0); Hematocrit 35.9 % (41.0-53.0); Mean Corpuscular Hemoglobin 37.4 pg (28.0-32.0); Mean Corpuscular Hgb Conc. 35.1 g/dL (32.0-36.0); Mean Corpuscular Volume 106.6 fL (80.0-100.0); Monocytes % (auto) 9.1 % (0.0-12.0); Platelet Count (auto) 214 10^3/uL (140-450); Red Blood Cells 3.37 10^6/uL (4.5-5.90); Red Cell Distribution Width 16.9 % (11.8-14.3); White Blood Cell 6.8 10^3/uL (4.4-10.8)
[2023-12-10 06:33] LABS: Chloride 101 mmol/L (98-107); Potassium 4.4 mmol/L (3.5-5.1); Sodium 134 mmol/L (136-145)
[2023-12-10 06:34] LABS: Anion Gap 4 (5-15); Calcium 8.9 mg/dL (8.7-10.4); Carbon Dioxide 29 mmol/L (20-30)
[2023-12-10 06:39] LABS: Glucose 134 mg/dL (74-106)
[2023-12-10 06:40] LABS: BUN/Creatinine Ratio 18.1 (10.0-20.0); Blood Urea Nitrogen 31 mg/dL (9-23)
[2023-12-10] MEDS: APIXABAN 2.5 MG TAB PO SCH (10:10)
[2023-12-11] VITALS (11 sets, daily range): BP systolic 100–126; BP diastolic 56–72; PULSE 69–78; RESP 14–18; TEMP 98–98.8; O2SAT 95–99
[2023-12-11 06:18] LABS: Basophils # (auto) 0.1 10 ^3/uL (0-0.2); Eosinophils # (auto) 0.1 10 ^3/uL (0-0.8); Hemoglobin 12.8 g/dL (13.5-17.5); Mean Corpuscular Volume 105.2 fL (80.0-100.0); Monocytes # (auto) 0.7 10 ^3/uL (0-1.3)
[2023-12-11 06:20] LABS: Basophils % (auto) 1.3 % (0.0-2.0); Eosinophils % (auto) 1.3 % (0.0-7.0); Hematocrit 36.7 % (41.0-53.0); Lymphocytes % (auto) 27.1 % (10.0-50.0); Mean Corpuscular Hemoglobin 36.7 pg (28.0-32.0); Mean Corpuscular Hgb Conc. 34.9 g/dL (32.0-36.0); Monocytes % (auto) 9.7 % (0.0-12.0); Neutrophils # (auto) 4.5 10 ^3/uL (1.6-8.6); Neutrophils % (auto) 60.6 % (37.0-80.0); Nucleated Red Blood Cells % 0.2 %; Platelet Count (auto) 219 10^3/uL (140-450); Red Blood Cells 3.49 10^6/uL (4.5-5.90); Red Cell Distribution Width 16.6 % (11.8-14.3); White Blood Cell 7.5 10^3/uL (4.4-10.8)
[2023-12-11 06:27] LABS: Chloride 104 mmol/L (98-107); Potassium 4.1 mmol/L (3.5-5.1); Sodium 133 mmol/L (136-145)
[2023-12-11 06:28] LABS: Anion Gap 3 (5-15); Calcium 8.9 mg/dL (8.7-10.4); Carbon Dioxide 26 mmol/L (20-30)
[2023-12-11 06:33] LABS: BUN/Creatinine Ratio 20.3 (10.0-20.0); Blood Urea Nitrogen 32 mg/dL (9-23); Glucose 117 mg/dL (74-106)
[2023-12-12] VITALS (11 sets, daily range): BP systolic 99–130; BP diastolic 50–76; PULSE 66–71; RESP 16–18; TEMP 97.7–98.6; O2SAT 95–99
[2023-12-12 06:13] LABS: Basophils # (auto) 0.1 10 ^3/uL (0-0.2); Basophils % (auto) 1.1 % (0.0-2.0); Eosinophils # (auto) 0.1 10 ^3/uL (0-0.8); Hematocrit 39.1 % (41.0-53.0); Hemoglobin 13.6 g/dL (13.5-17.5); Lymphocytes # (auto) 1.8 10 ^3/uL (0.4-5.4); Lymphocytes % (auto) 20.6 % (10.0-50.0); Mean Corpuscular Hemoglobin 37.1 pg (28.0-32.0); Mean Corpuscular Hgb Conc. 34.8 g/dL (32.0-36.0); Mean Corpuscular Volume 106.4 fL (80.0-100.0); Monocytes # (auto) 0.6 10 ^3/uL (0-1.3); Monocytes % (auto) 6.9 % (0.0-12.0); Neutrophils # (auto) 6.2 10 ^3/uL (1.6-8.6); Neutrophils % (auto) 70.4 % (37.0-80.0); Nucleated Red Blood Cells % 0.1 %; Platelet Count (auto) 226 10^3/uL (140-450); Red Blood Cells 3.67 10^6/uL (4.5-5.90); Red Cell Distribution Width 17.5 % (11.8-14.3); White Blood Cell 8.8 10^3/uL (4.4-10.8)
[2023-12-12 06:23] LABS: Chloride 101 mmol/L (98-107); Potassium 4.8 mmol/L (3.5-5.1); Sodium 133 mmol/L (136-145)
[2023-12-12 06:24] LABS: Anion Gap 5 (5-15); Carbon Dioxide 27 mmol/L (20-30)
[2023-12-12 06:29] LABS: BUN/Creatinine Ratio 16.4 (10.0-20.0); Blood Urea Nitrogen 29 mg/dL (9-23)
[2023-12-12 06:56] LABS: Glucose 245 mg/dL (74-106)
[2023-12-12] MEDS: FAMOTIDINE 20 MG TAB PO SCH (09:39)
[2023-12-13] VITALS (9 sets, daily range): BP systolic 99–120; BP diastolic 60–79; PULSE 64–80; RESP 15–19; TEMP 97.9–98.7; O2SAT 95–98
[2023-12-13] MEDS: ACETAMINOPHEN 325 MG TAB PO PRN (09:31)
[2023-12-13] MEDS ORDERED: FUROSEMIDE 40 MG/4 ML VIAL IV SCH (12:30)
[2023-12-13] MEDS ORDERED: ASPI-325 PO (15:14)
== END 2023-12-13 16:35 | disposition home or self-care (01) | DRG 281 ==
LOC: ER 02:47 → TELE 06:35 → TELE-WESTW 14:40
PROVIDERS: ADMIT Nurse Practitioner; ATTEND Nurse Practitioner
DX: I16.0 Hypertensive urgency (principal); E87.1 Hypo-osmolality and hyponatremia; I21.A1 Myocardial infarction type 2; I50.22 Chronic systolic (congestive) heart failure; I13.0 Hypertensive heart and chronic kidney disease with heart failure and stage 1 through stage 4 chronic kidney disease, or unspecified chronic kidney disease; E78.5 Hyperlipidemia, unspecified; E11.65 Type 2 diabetes mellitus with hyperglycemia; E11.22 Type 2 diabetes mellitus with diabetic chronic kidney disease; I48.91 Unspecified atrial fibrillation; K21.9 Gastro-esophageal reflux disease without esophagitis; N18.2 Chronic kidney disease, stage 2 (mild); I25.10 Atherosclerotic heart disease of native coronary artery without angina pectoris; Z82.49 Family history of ischemic heart disease and other diseases of the circulatory system; Z95.1 Presence of aortocoronary bypass graft; Z79.84 Long term (current) use of oral hypoglycemic drugs; Z79.01 Long term (current) use of anticoagulants; Z98.61 Coronary angioplasty status
CPT/HCPCS: 36415; 70450; 70551; 71045; 71250; 76775; 80048; 80053; 80061; 81001; 82306; 82962; 83036; 83880; 84100; 84484; 85025; 85379; 93005; 93306; 94640; G0378; J1815; J2405; J3490